=== PATIENT | male | born 1965 | race Caucasian/White ===

== ENCOUNTER 2022-03-27 11:45 | Outpatient (REF) | payer BC, SELFPAY ==
[2022-03-27 13:11] LABS: Erythrocyte Sedimentation Rate 34 MM/HR (0-15)
[2022-03-27 13:27] LABS: T4 Thyroxine 8.2 ug/dL (4.5-12.0); Thyroid Stimulating Hormone 1.99 uIU/mL (0.32-4.0)
[2022-03-28 14:08] LABS: Anti Nuclear Antibody Screen NEGATIVE (NEGATIVE)
[2022-03-31 04:42] LABS: Aldolase 4.4 U/L (<=8.1)
== END 2022-03-27 11:46 | disposition home or self-care (01) ==
LOC: HO.LAB 11:45
PROVIDERS: PCP Internal Medicine; Visit Provider Psychiatry & Neurology Neurology
DX: G62.9 Polyneuropathy, unspecified (principal)
CPT/HCPCS: 36415; 82085; 84436; 84443; 85652; 86038; 86039